=== PATIENT | female | born 1940 | race Caucasian/White ===

== ENCOUNTER 2018-08-09 11:44 | Outpatient (CLI) | payer MEDICARE ==
[2018-08-09] VITALS (9 sets, daily range): BP systolic 110–130; BP diastolic 56–68; PULSE 58–90
[~2018-08-09 11:44] MED LIST: CALCIUM CITRAT200 MG PO; CRANBERRY1 CAP PO; DAZIDOX10 MG PO; FOLIC ACID0.4 MG PO; FOSAMAX 35MG35 MG PO; GLUCOPHAGE XR500 M1 PO; GLUCOTROL 5M5 MG/TAB PO; MICARDIS40 MG PO; MOBIC 7.5MG7.5 MG PO; PRAVACHOL 20MG20 MG PO; REQUIP0.25 MG PO; SYNTHROID 0.10.15 MG PO; VITAMIN D5000 IU PO; ZYDONE 5 PO
[2018-08-09 12:30] LABS: HEMATOCRIT 44.5 % (37.0-47.0); HEMOGLOBIN 13.8 g/dl (12.5-16.0); MEAN CELL VOLUME 91 fl (80.0-100.0); MEAN CORPUSCULAR HEMOGLOBIN 28 pg (27.0-31.0); MEAN CORPUSCULAR HGB CONC 31 g/dl (33.0-37.0); MEAN PLATELET VOLUME 9.8 fl (7.4-10.4); PLATELET COUNT 217 K/mm3 (130-400); RED BLOOD COUNT 4.89 M/mm3 (4.10-5.30); REDCELL DISTRIBUTION WIDTH-CV 14.5 % (11.5-14.5)
[2018-08-09 12:34] LABS: PROTHROMBIN TIME 12.2 SECONDS (9.7-12.8)
[2018-08-09 12:39] LABS: CALCIUM 9.4 mg/dL (8.4-10.2); CREATININE, serum 0.56 (0.52-1.25); POTASSIUM 4.7 mmol/L (3.4-5.0)
[2018-08-09] MEDS ORDERED: FENTANYL 50MCG TD (12:43)
--- NOTE | 2018-08-09 15:22 | NUR ---
INT discontinued intact. Discharge instructions given. Follow up appt made for 08/24/18 at 1500 in . Transferred to private car by conchita
== END 2018-08-09 15:30 | disposition home or self-care (01) ==
LOC: COL.RAD 11:44
PROVIDERS: Internal Medicine Cardiovascular Disease
DX: I35.0 Nonrheumatic aortic (valve) stenosis (principal)
CPT/HCPCS: J2704; J7030

== ENCOUNTER 2018-10-06 07:17 | Day surgery (SDC) | payer MEDICARE ==
[~2018-10-06] VITALS: Ht 165.5 cm; Wt 83.3 kg
[2018-10-06] VITALS (13 sets, daily range): BP systolic 98–136; BP diastolic 37–89; PULSE 53–109; TEMP 97.8–98.3
[~2018-10-06 07:17] MED LIST changes: +FENTANYL 50MCG TD; -SYNTHROID 0.10.15 MG PO; +SYNTHROID0.1 MG/TAB PO
[2018-10-06] MEDS ORDERED: LASIX 20MG TABL20 MG PO (07:57)
[2018-10-06] MEDS ORDERED: ANTIVERT 25MG25 MG PO (07:57)
[2018-10-06] MEDS ORDERED: NEURONTIN300 MG/CAP PO (07:57)
[2018-10-06] MEDS ORDERED: NATURAL IRON65 MG PO (07:58)
[2018-10-06] MEDS ORDERED: TRADJENTA5 MG PO (07:59)
[2018-10-06] MEDS ORDERED: NATURAL POTASS595 MG PO (07:59)
[2018-10-06] MEDS ORDERED: ASPIRIN 81M81 MG/TA2 PO (08:00)
[2018-10-06] MEDS ORDERED: VITAMIN B11000 MCG/M IM (08:01)
[2018-10-06 08:20] LABS: HEMATOCRIT 39.1 % (37.0-47.0); HEMOGLOBIN 12.2 g/dl (12.5-16.0); MEAN CELL VOLUME 92 fl (80.0-100.0); MEAN CORPUSCULAR HEMOGLOBIN 29 pg (27.0-31.0); MEAN CORPUSCULAR HGB CONC 31 g/dl (33.0-37.0); MEAN PLATELET VOLUME 10.1 fl (7.4-10.4); PLATELET COUNT 161 K/mm3 (130-400); RED BLOOD COUNT 4.27 M/mm3 (4.10-5.30); REDCELL DISTRIBUTION WIDTH-CV 14.6 % (11.5-14.5)
[2018-10-06 08:26] LABS: PROTHROMBIN TIME 11.6 SECONDS (9.7-12.8)
[2018-10-06 08:30] LABS: CALCIUM 9.1 mg/dL (8.4-10.2); CREATININE, serum 0.67 (0.52-1.25); POTASSIUM 4.8 mmol/L (3.4-5.0)
--- NOTE | 2018-10-06 09:30 | NUR ---
SEE MERECHAVA FOR ALL MEDICATION ADMINISTRATION TIMES AND INTRA/POST SEDATION ASSESSMENTS/RASS SCORE
--- NOTE | 2018-10-06 11:48 | NUR ---
Pt was admitted to room 317 from cleaner laboratory equipment. She is awake and A/Ox4. Saline lock to left AC is free of complications. Right radial cath site is free of complications. TR band at 12 mL of air. Site is soft and free of hematoma. Medications/allergies/pharm reviewed. Pt and family were oriented to room and to staff, expressed understanding.
[2018-10-06] MEDS ORDERED: NORCO 325 MG-101 TAB PO (12:47)
[2018-10-06] MEDS ORDERED: GLUCOTROL 5M5 MG/TAB PO (12:49)
--- NOTE | 2018-10-06 13:20 | NUR ---
5 mL of air released from compression band, no s/s of bleeding.
--- NOTE | 2018-10-06 13:47 | NUR ---
ADDITIONAL 5 ML OF AIR RELEASED FROM TR BAND. NO S/S OF BLEEDING NOTED.
--- NOTE | 2018-10-06 14:20 | NUR ---
REMAINING 2 ML OF AIR FROM TR BAND RELEASED. NO S/S OF BLEEDING, NO HEMATOMA NOTED. BANDAID APPLIED.
--- NOTE | 2018-10-06 18:40 | NUR ---
Pt continues to do well post cath. No s/s of bleeding/hematoma from right radial site.
--- NOTE | 2018-10-06 20:10 | NUR ---
Shift assessment complete. Pt resting in bed, awake, a&o, cooperative c cares. Pt reports continued chronic pain to back et RUE; provided c PRN pain med c HS meds per pt request. Pt denies any other c/o. INT patent. R radial cath site noted, s s/s complication; bandaid C/D/I. Tele in place. Pt denies needs at this time. Call light in reach, will monitor.
[2018-10-07 03:59] VITALS: BP 107/64; PULSE 60; TEMP 98
--- NOTE | 2018-10-07 08:07 | NUR ---
Assessment completed, alert/oriented, vital signs stable, reports continued flare up of chronic back pain, has Duragesic patch on and I have given Oxycodone as ordered, heart RRR/ distal pulses are palpable, lungs CTA/ no resp.diffculty, right radial puncture site C/D/I, she is sitting up eating breakfast, denies other needs at [facility]
[2018-10-07] MEDS ORDERED: BRILINTA90 MG PO (08:11)
[2018-10-07] MEDS ORDERED: LIPITOR20 MG PO (08:11)
[2018-10-07 08:45] VITALS: BP 117/47; PULSE 66; TEMP 97.9
--- NOTE | 2018-10-07 09:33 | NUR ---
Discharge orders discussed with the patient, discussed new meds Brillinta/Lipitor and scripts sent to pharmacy for her and printed info for them, instructed to follow up as ordered, IV and tele removed, leaving with family, will escort them out the door
--- NOTE | 2018-10-07 12:34 | NUR ---
SHELDON met with patient in room. Patient reprots that she resides in with her Donnell and sons. Patient idicated that her dtr Tg will transport her home. Paticristóbalr repots that her PCP is Dr. Cameron and she has an appt in November for follow-up on diabetis. Clecarmen reports that hse uses a hearing device and uses [facility] in [place] for her RX. Patient denies any other DME. Patient denies having any other concerns at this time.
== END 2018-10-07 12:15 | disposition home or self-care (01) ==
LOC: COL.CAR 07:17 → MEDICAL 11:04 → COL.CAR 10-07 12:15
PROVIDERS: Internal Medicine Cardiovascular Disease
DX: I25.118 Atherosclerotic heart disease of native coronary artery with other forms of angina pectoris (principal); E78.5 Hyperlipidemia, unspecified; I10 Essential (primary) hypertension; E11.9 Type 2 diabetes mellitus without complications; I35.0 Nonrheumatic aortic (valve) stenosis; Z98.61 Coronary angioplasty status; Z79.84 Long term (current) use of oral hypoglycemic drugs; Z79.82 Long term (current) use of aspirin; Z90.49 Acquired absence of other specified parts of digestive tract; Z90.710 Acquired absence of both cervix and uterus; Z83.3 Family history of diabetes mellitus; Z87.891 Personal history of nicotine dependence; G25.81 Restless legs syndrome; E03.9 Hypothyroidism, unspecified; G43.909 Migraine, unspecified, not intractable, without status migrainosus; M19.90 Unspecified osteoarthritis, unspecified site; M54.5 Low back pain; Z88.0 Allergy status to penicillin
CPT/HCPCS: OP; C9600; J1644; J2250; J3010; Q9967

== ENCOUNTER 2019-12-18 11:26 | Day surgery (SDC) | payer MEDICARE ==
[~2019-12-18] VITALS: Ht 162.6 cm; Wt 93.1 kg
[~2019-12-18 11:26] MED LIST changes: +ANTIVERT 25MG25 MG PO; +ASPIRIN 81M81 MG/TA2 PO; +BRILINTA90 MG PO; +LASIX 20MG TABL20 MG PO; +LIPITOR20 MG PO; +NATURAL IRON65 MG PO; +NATURAL POTASS595 MG PO; +NEURONTIN300 MG/CAP PO; +NORCO 325 MG-101 TAB PO; +TRADJENTA5 MG PO; +VITAMIN B11000 MCG/M IM
[2019-12-18 12:22] VITALS: BP 144/75; PULSE 64; TEMP 98.3
[2019-12-18] MEDS ORDERED: STOOL SOFTENER100 M2 PO (12:53)
[2019-12-18] MEDS ORDERED: GLUCOPHAGE500 MG/TAB PO (12:54)
[2019-12-18] MEDS ORDERED: MASON NATURAL2000 IU PO (12:56)
[2019-12-18] MEDS ORDERED: MYRBETR50MG PO (13:10)
[2019-12-18] MEDS ORDERED: AZO-STANDARD95 MG PO (13:10)
[2019-12-18] MEDS ORDERED: MIRALAX PA17 GM/Dose PO (13:11)
--- NOTE | 2019-12-18 13:12 | NUR ---
Informed patient that surgery will be delayed due to eating at 1000.
[2019-12-18 17:10] VITALS: BP 124/58; PULSE 71; TEMP 97.8
--- NOTE | 2019-12-18 17:10 | NUR ---
TO RM 4 PER CART FROM PACU. DROWSY,BUT ANSWERS ALL QUESTIONS COHERENTLY. O2 SAT 92% ON ROOM AIR AND 97% ON 2L PER NC. DENIES PAIN OR DISCOMFORT. DENIES N/V. RECEIVED WATER AND TAKING SIPS. SON AT BEDSIDE.
[2019-12-18 17:25] VITALS: BP 138/58; PULSE 75
--- NOTE | 2019-12-18 17:25 | NUR ---
PATIENT STATED SHE NEEDED TO BATHROOM. PATIENT AMBULATED TO BATHROOM SHE DRIBBLED PINK URINE FROM BED TO BATHROOM. ONCE TO BATHROOM VOIDED. AMBULATED TO BATHROOM USING OWN WHEELED WALKER. PERICARE AND WASHED UP LEGS. ASSISTED INTO HER STREET CLOTHS. AND NEW SOCKS PLACED ON FEET. PATIENT DID NOT WISH TO HAVE SHOES PLACED OVER SOCKS. AMBULATED BACK TO .
--- NOTE | 2019-12-18 17:50 | NUR ---
RECEIVED DISCHARGE INSTRUCTIONS AND VERBALIZED UNDERSTANDING. DISCONTINED IV AND INT.
--- NOTE | 2019-12-18 18:01 | NUR ---
DISCHARGED PER BY NURSING STAFF TO PRIVATE CAR IN CARE OF SON MICA.
== END 2019-12-18 18:14 | disposition home or self-care (01) ==
LOC: SDCO 11:26
DX: N30.20 Other chronic cystitis without hematuria (principal); N28.89 Other specified disorders of kidney and ureter; F41.9 Anxiety disorder, unspecified; I25.10 Atherosclerotic heart disease of native coronary artery without angina pectoris; E11.9 Type 2 diabetes mellitus without complications; I10 Essential (primary) hypertension; R35.0 Frequency of micturition; J44.9 Chronic obstructive pulmonary disease, unspecified; E78.5 Hyperlipidemia, unspecified; I35.0 Nonrheumatic aortic (valve) stenosis; G89.29 Other chronic pain; M19.90 Unspecified osteoarthritis, unspecified site; E03.9 Hypothyroidism, unspecified; D64.9 Anemia, unspecified; Z90.710 Acquired absence of both cervix and uterus; Z79.82 Long term (current) use of aspirin; Z79.02 Long term (current) use of antithrombotics/antiplatelets; Z79.84 Long term (current) use of oral hypoglycemic drugs; Z88.0 Allergy status to penicillin; Z90.49 Acquired absence of other specified parts of digestive tract; Z95.5 Presence of coronary angioplasty implant and graft; Z87.891 Personal history of nicotine dependence; Z85.41 Personal history of malignant neoplasm of cervix uteri
CPT/HCPCS: J0690; J1100; J2405; J2704; J3010; J7030

== ENCOUNTER → 2021-03-19 | Outpatient (CLI) | payer MEDICARE ==
[~2021-03-19] MED LIST changes: +AZO-STANDARD95 MG PO; +GLUCOPHAGE500 MG/TAB PO; +MASON NATURAL2000 IU PO; +MIRALAX PA17 GM/Dose PO; +MYRBETR50MG PO; +STOOL SOFTENER100 M2 PO
== END ==
LOC: COL.RAD 03-05 14:00
DX: I67.82 Cerebral ischemia (principal); G31.9 Degenerative disease of nervous system, unspecified; R25.9 Unspecified abnormal involuntary movements

== ENCOUNTER 2021-09-16 16:21 | Inpatient (IN) | payer MEDICARE ==
[~2021-09-16] VITALS: Ht 160 cm; Wt 102.2 kg
[2021-09-16 17:28] LABS: BASO # 0.1 K/mm3 (0.0-0.2); BASO % 1.1 % (0.0-2.0); EOS # 0.2 K/mm3 (0.0-0.7); EOS % 2.3 % (0.0-4.0); GRAN % 61.9 % (42.2-75.2); HEMOGLOBIN 10.7 g/dl (12.5-16.0); LYMPH # 1.6 K/mm3 (1.2-3.4); LYMPH % 24.3 % (20.0-51.0); MEAN CELL VOLUME 90 fl (80.0-100.0); MEAN CORPUSCULAR HEMOGLOBIN 28 pg (27-31); MEAN CORPUSCULAR HGB CONC 31 g/dl (33.0-37.0); MEAN PLATELET VOLUME 10.3 fl (7.4-10.4); MONO # 0.7 K/mm3 (0.1-0.6); MONO % 10.2 % (1.7-9.3); PLATELET COUNT 195 K/mm3 (130-400); RED BLOOD COUNT 3.84 M/mm3 (4.10-5.30); REDCELL DISTRIBUTION WIDTH-CV 18.9 % (11.5-14.5)
[2021-09-16 17:29] LABS: HEMATOCRIT 34.7 % (37.0-47.0)
[2021-09-16 17:49] LABS: ALBUMIN 3.5 gm/dL (3.4-4.8); BILIRUBIN,TOTAL 0.4 mg/dL (0.2-1.2); CALCIUM 9.1 mg/dL (8.4-10.2); CREATININE, serum 1.36 mg/dL (0.57-1.11); POTASSIUM 3.9 mmol/L (3.5-4.5); TOTAL PROTEIN 7.5 gm/dL (6.2-8.1)
[2021-09-16 18:09] LABS: COLLECTION METHOD CLEAN CATCH
[2021-09-16 18:22] LABS: PH 5 (5-8); URINE APPEARANCE Turbid (CLEAR/HAZY); URINE BACTERIA Moderate /hpf (NONE SEEN); URINE BILIRUBIN Negative (NEGATIVE); URINE BLOOD 3+ (NEGATIVE); URINE COLOR Yellow (YELLOW); URINE GLUCOSE Negative (NEGATIVE); URINE KETONE Negative (NEGATIVE); URINE LEUKOCYTE ESTERASE 2+ (NEGATIVE); URINE NITRATE Positive (NEGATIVE); URINE PROTEIN(semi-quant) 2+ (NEGATIVE); URINE RBC >50 /hpf (0-2); URINE UROBILINOGEN Negative (NEGATIVE)
[2021-09-16] MEDS ORDERED: REQUIP 1MG T1 MG/TAB PO (19:59)
[2021-09-16] MEDS ORDERED: TOPROL XL 25MG25 MG PO (20:23)
[2021-09-16] MEDS ORDERED: CYMBALTA 30MG30 MG PO (20:26)
[2021-09-16] MEDS ORDERED: NAMENDA 10MG TA10 MG PO (20:26)
[2021-09-16] MEDS ORDERED: ARICEPT10 MG PO (20:27)
[2021-09-16] MEDS ORDERED: CRANBERRY500 M3 PO (21:40)
[2021-09-16] MEDS ORDERED: FENTANYL 12MCG TD (21:40)
[2021-09-16] MEDS ORDERED: FOLIC ACID 11 MG/TA1 PO (21:40)
[2021-09-16] MEDS ORDERED: ONE DAILY ESSE0.5 MG PO (21:41)
[2021-09-16] MEDS ORDERED: [UNRECOGNIZED DRUG - OTHER] PO (21:42)
[2021-09-17] VITALS (8 sets, daily range): BP systolic 118–141; BP diastolic 53–75; PULSE 51–79; TEMP 97.7–98.9
--- NOTE | 2021-09-17 00:24 | NUR ---
RECEIVED REPORT FROM EJarad RN, ROSA. WAITING FOR PATIENT TO ARRIVE FROM E.R. FOR ADMIT TO ROOM 324.
--- NOTE | 2021-09-17 01:01 | NUR ---
PATIENT ARRIVED FOR ADMIT TO ROOM 324. OXYGEN ON PER NC AT [address], AND DENIES CHEST PAIN/SOA/NAUSEA AT THIS TIME.
--- NOTE | 2021-09-17 06:12 | NUR ---
PAGED DR JAQUEZ, CARDIOLOGY ONCALL, FOR CONSULT. WAITING FOR CALL BACK.
--- NOTE | 2021-09-17 07:18 | NUR ---
CHANGE OF SHIFT REPORT GIVEN TO DAY SHIFT RNSUSAN.
--- NOTE | 2021-09-17 09:37 | NUR ---
Initial visist; Patient thanked for looking in on her and helping her butter her toast and unwrap her breakfast fruit as she only has use of one arm. visited with "Traci" offering her God's blessings. She thanked for being here for her.
--- NOTE | 2021-09-17 16:00 | NUR ---
die try out worker stamping met with patient to complete intake and discuss discharge plan. Patient reports that she lives at home with her 2 sons, daughter in law and grandchildren. She is somewhat independent with her ADL's but does get help with personal hygiene and showering. She utilizes a walker within the home and a wheelchair outside of the home. Patient denies any home oxygen needs. PCP is Dr. Len Matias and she utilizes [facility] in for prescription needs. Patient reports to having HH for PT established through [facility]. She is planning on returning home with HH. Discharge plan: Home with [facility]
--- NOTE | 2021-09-17 19:33 | NUR ---
PT SITTING IN CHAIR RESTING QUIETLY. PT DENIES ANY PAIN AT THIS TIME.
--- NOTE | 2021-09-17 20:53 | NUR ---
PT LAYING IN BED RESTING QUIETLY. AMPICILLIN ORDERED BY PROVIDER. PT ALLERGIC TO PENICILLIN AND EDUCATED ON RISKS AND BENEFITS OF MEDICATION. PT OKAY WITH RECEIVING AMPICILLIN. IV BENADRYL ORDER OBTAINED IN CASE REACTION.
[2021-09-18 03:09] VITALS: BP 132/66; PULSE 54; TEMP 98.7
[2021-09-18 06:42] LABS: BASO # 0.1 K/mm3 (0.0-0.2); BASO % 1.1 % (0.0-2.0); EOS # 0.1 K/mm3 (0.0-0.7); EOS % 2.3 % (0.0-4.0); GRAN # 2.2 K/mm3 (1.4-6.5); GRAN % 48.6 % (42.2-75.2); LYMPH # 1.7 K/mm3 (1.2-3.4); LYMPH % 39.2 % (20.0-51.0); MEAN CELL VOLUME 91 fl (80.0-100.0); MEAN CORPUSCULAR HGB CONC 31 g/dl (33.0-37.0); MEAN PLATELET VOLUME 11.1 fl (7.4-10.4); MONO # 0.4 K/mm3 (0.1-0.6); MONO % 8.8 % (1.7-9.3); PLATELET COUNT 177 K/mm3 (130-400); RED BLOOD COUNT 3.47 M/mm3 (4.10-5.30); REDCELL DISTRIBUTION WIDTH-CV 18.6 % (11.5-14.5)
[2021-09-18 06:45] LABS: HEMATOCRIT 31.4 % (37.0-47.0); HEMOGLOBIN 9.7 g/dl (12.5-16.0); MEAN CORPUSCULAR HEMOGLOBIN 28 pg (27-31)
[2021-09-18 06:50] LABS: ALBUMIN 3.1 gm/dL (3.4-4.8); CALCIUM 8.3 mg/dL (8.4-10.2); CREATININE, serum 0.81 mg/dL (0.57-1.11); MAGNESIUM 1.8 mg/dL (1.6-2.6); POTASSIUM 3.6 mmol/L (3.5-4.5)
[2021-09-18 08:00] VITALS: BP 133/62; PULSE 62; TEMP 98.2
--- NOTE | 2021-09-18 09:14 | NUR ---
Follow-up visit; Patient thanked Casino Cashier Manager for coming in to check on her again today. Traci is worried about making too much work for the nurses with her health issues. Casino Cashier Manager explained that Nurses can handle any kind of work and that it's important she not worry and concentrate on getting well. Casino Cashier Manager continues to keep Traci in her prayers.
[2021-09-18 12:00] VITALS: BP 134/83; PULSE 131; TEMP 98
--- NOTE | 2021-09-18 14:34 | NUR ---
PATIENTS HR RETURNED TO NORMAL CURRENTLY 96
[2021-09-18 15:09] VITALS: BP 121/84; PULSE 91; TEMP 98.3
--- NOTE | 2021-09-18 17:25 | NUR ---
patient and her family mentioned how she fell in the shower at home, there is no mention of this in the H&P. Patient is already on fall precautions. Patient is able to answer orientation questions correctly, however, today she has been acting off. When walking to the bathroom, she suddenly stopped, and began walking side ways, unneccesarily. She thought earlier her family was in her room using her bathroom, however there was no one in or outside the room. Will continue to monitor.
[2021-09-18 20:23] VITALS: BP 130/57; PULSE 70; TEMP 98.7
--- NOTE | 2021-09-18 21:00 | NUR ---
PT ASSISTED TO BATHROOM WITH WALKER AND GAIT BELT, VOIDS ON TOILET, VPADS WERE DRY. BACK TO BED WITH ONE ASSIST. HS MEDS GIVEN. PT ORIENTED TO PERSON, PLACE, BUT NOT TIME OR DATE.
--- NOTE | 2021-09-18 22:51 | NUR ---
PT ERICA FOR HER SON. REMINDED HER SHE WAS IN THE HOSPITAL. PT STATED "I KNOW THAT, I HEARD HIS VOICE AND HIS SON". AGAIN REMINDED PT OF TIME OF DAY. SHE REPLIED "I'M NOT CRAZY".
[2021-09-19 00:16] VITALS: BP 118/56; PULSE 56; TEMP 98
--- NOTE | 2021-09-19 02:24 | NUR ---
PT STILL HAVING HALLUCINATIONS, SEEING HER SON AND GRANDSON IN THE ROOM.
[2021-09-19 04:18] VITALS: BP 131/50; PULSE 55; TEMP 98.3
[2021-09-19 05:31] LABS: BASO # 0.1 K/mm3 (0.0-0.2); BASO % 0.9 % (0.0-2.0); EOS # 0.1 K/mm3 (0.0-0.7); EOS % 1.9 % (0.0-4.0); GRAN # 2.9 K/mm3 (1.4-6.5); GRAN % 54.4 % (42.2-75.2); LYMPH # 1.8 K/mm3 (1.2-3.4); LYMPH % 34.1 % (20.0-51.0); MEAN CELL VOLUME 93 fl (80.0-100.0); MEAN CORPUSCULAR HGB CONC 30 g/dl (33.0-37.0); MEAN PLATELET VOLUME 10.6 fl (7.4-10.4); MONO # 0.5 K/mm3 (0.1-0.6); MONO % 8.5 % (1.7-9.3); PLATELET COUNT 171 K/mm3 (130-400); RED BLOOD COUNT 3.46 M/mm3 (4.10-5.30); REDCELL DISTRIBUTION WIDTH-CV 18.5 % (11.5-14.5)
[2021-09-19 05:52] LABS: ALBUMIN 3.1 gm/dL (3.4-4.8); CALCIUM 8.5 mg/dL (8.4-10.2); CREATININE, serum 0.86 mg/dL (0.57-1.11); MAGNESIUM 1.8 mg/dL (1.6-2.6); PHOSPHOROUS 2.1 mg/dL (2.3-4.7); POTASSIUM 3.3 mmol/L (3.5-4.5)
[2021-09-19 05:53] LABS: HEMATOCRIT 32.1 % (37.0-47.0); HEMOGLOBIN 9.7 g/dl (12.5-16.0); MEAN CORPUSCULAR HEMOGLOBIN 28 pg (27-31)
--- NOTE | 2021-09-19 06:25 | NUR ---
PT TAKES AM MED WITHOUT PROBLEM. ABLE TO TELL THIS NURSE HER NAME/BIRTHDAY/CURRENT YEAR.
[2021-09-19 07:10] VITALS: BP 143/72; PULSE 57; TEMP 98.2
[2021-09-19] MEDS ORDERED: OMNICEF 300MG300 MG PO (09:12)
[2021-09-19] MEDS ORDERED: BACTRIM 400 MG-1 TAB PO (09:16)
[2021-09-19] MEDS ORDERED: EUTHYROX125 MCG PO (09:17)
--- NOTE | 2021-09-19 09:31 | NUR ---
PT RESTING IN BED. HOSPITALIST IN AND PLAN ON DISCHARGE HOME WITH HH AND FAMILY. ASSESSMENTS COMPLETE, VSS, PT ON ROOM AIR AT THIS TIME WITH O2 SATS IN LOW 90'S. PT EATING BREAKFAST WITH SET UP HELP.
[2021-09-19 11:59] VITALS: BP 143/75; PULSE 53; TEMP 97.9
--- NOTE | 2021-09-19 14:25 | NUR ---
DISCHARGE INSTRUCTIONS REVIEWED WITH FAMILY. LICENSED ARCHITECT FOLLOWED UP WITH FAMILY. PT LEFT UNIT PER WHEEL CHAIR WITH FAMILY TO HOME WITH HOME HEALTH SERVICES.
--- NOTE | 2021-09-19 14:45 | NUR ---
SW informed patient would discharging home and son Donnell would be assisting with transfer. SW called son to inform of discharge and confirm transportation and choice of agency. [facility] faxed to [facility]. Nothing further.
== END 2021-09-19 12:50 | disposition home health service (06) | DRG 871 ==
LOC: COL.ER 16:21 → SURG 19:54
PROVIDERS: Physician Assistant; ADMIT Internal Medicine
PROC: 02HV33Z Insertion of Infusion Device into Superior Vena Cava, Percutaneous Approach (ICD-10-PCS; principal; 2021-09-17)
DX: A41.9 Sepsis, unspecified organism (principal); J18.9 Pneumonia, unspecified organism; J96.01 Acute respiratory failure with hypoxia; N13.6 Pyonephrosis; N17.9 Acute kidney failure, unspecified; I95.1 Orthostatic hypotension; I35.0 Nonrheumatic aortic (valve) stenosis; G89.29 Other chronic pain; M54.9 Dorsalgia, unspecified; I10 Essential (primary) hypertension; E11.9 Type 2 diabetes mellitus without complications; G30.9 Alzheimer's disease, unspecified; F02.80 Dementia in other diseases classified elsewhere, unspecified severity, without behavioral disturbance, psychotic disturbance, mood disturbance, and anxiety; Z20.822 Contact with and (suspected) exposure to COVID-19; I25.10 Atherosclerotic heart disease of native coronary artery without angina pectoris; N30.20 Other chronic cystitis without hematuria; E11.65 Type 2 diabetes mellitus with hyperglycemia; E78.5 Hyperlipidemia, unspecified; G25.81 Restless legs syndrome; D64.9 Anemia, unspecified; E87.6 Hypokalemia; E03.9 Hypothyroidism, unspecified; Z87.440 Personal history of urinary (tract) infections; Z79.890 Hormone replacement therapy; Z95.5 Presence of coronary angioplasty implant and graft; Z23 Encounter for immunization; Z90.710 Acquired absence of both cervix and uterus; Z90.89 Acquired absence of other organs; Z88.0 Allergy status to penicillin; Z87.891 Personal history of nicotine dependence; Z79.82 Long term (current) use of aspirin
CPT/HCPCS: 99223-AI; 99232-AI; 99233-AI; C1751; C1892; J0290; J0696; J1200; J1650; J7030; J7120; Q9967